=== PATIENT | male | born 1985 | race Caucasian/White ===

== ENCOUNTER 2022-01-31 18:06 | Emergency (ER) | payer SELFPAY ==
[~2022-01-31] VITALS: Ht 175.3 cm; Wt 68.0 kg
[2022-01-31 18:06] VITALS: BP_SYST 11
[2022-01-31 18:43] VITALS: BP_SYST 111
== END 2022-01-31 18:54 | disposition home or self-care (01) ==
LOC: SED 18:06
DX: R46.89 Other symptoms and signs involving appearance and behavior (principal); F15.20 Other stimulant dependence, uncomplicated; F17.200 Nicotine dependence, unspecified, uncomplicated; Z76.5 Malingerer [conscious simulation]
CPT/HCPCS: 99283